=== PATIENT | female | born 1945 | race Two or more races ===

== ENCOUNTER 2025-09-24 10:34 | Outpatient (REF) | payer OTHER, SELFPAY ==
[2025-09-24 14:03] LABS: MANUAL DIFF FLAG NO
[2025-09-24 14:09] LABS: Hematocrit 38.9 % (37.0-47.0); Hemoglobin 12.6 g/dl (12.0-16.0); Imm Gran Abs Auto 0.02 X10*3/uL (0.00-0.03); Imm Gran Pct Auto 0.3 % (0.0-0.4); Lymphocytes Absolute Auto 1.6 X10*3/uL (1.2-4.9); Mean Corpuscular HGB Conc 32.4 g/dl (31.0-35.0); Mean Corpuscular Hemoglobin 31.5 pg (27.0-33.0); Mean Corpuscular Volume 97.3 fL (80.0-98.0); NRBC Abs Auto 0.000 X10*3/uL (0.0-0.012); NRBC Pct Auto 0.0 /100WBC (0.0-0.2); Platelet Count 283 X10*3/uL (160-400); Red Blood Count 4.00 X10*6/uL (4.20-5.50); White Blood Count 5.8 X10*3/uL (4.8-10.8)
[2025-09-24 14:46] LABS: Alanine Aminotransferase 13 U/L (0-31); Albumin Level 4.3 g/dL (3.5-5.0); Alkaline Phosphatase 57 U/L (39-117); Anion Gap 10 (12-20); Aspartate Amino Transferase 26 U/L (5-31); Blood Urea Nitrogen 18 mg/dL (9-16); Calcium 9.6 mg/dL (8.4-10.2); Carbon Dioxide 27 mmol/L (22-29); Chloride 109 mmol/L (96-108); Cholesterol 237 mg/dL (<200); Estimated Glomerular Filt Rate > 60; HDL Cholesterol 60 mg/dL (>40); Magnesium 2.5 mg/dL (1.6-2.6); Potassium 4.5 mmol/L (3.3-5.1); Sodium 141 mmol/L (135-145); Total Protein 7.8 g/dL (6.5-8.0); Triglycerides 108 mg/dL (<150)
[2025-09-24 15:20] LABS: Folate 12.9 ng/mL (> or = 4.0); Vitamin B12 897 pg/mL (200-900)
[2025-09-25 07:43] LABS: Syphilis Screen Nonreactive (Nonreactive)
[2025-09-25 08:21] LABS: HBS Num1 1.09 mIU/mL (0-7.99); HBsAGNum1 0.39 S/CO (0.00-0.99); HIV Num 1 0.09 S/CO (0.00-0.99); Hepatitis B Surface Antigen Negative (Negative); ~HepC Num1 0.11 S/CO (0.00-0.79); ~Hepatitis B Surface Antibody NONREACTIVE (Nonreactive); ~Hepatitis C Antibody Nonreactive (Nonreactive)
[2025-09-29 06:08] LABS: Vitamin D 25-OH, D2 <4 ng/mL; Vitamin D 25-OH, D3 29 ng/mL; Vitamin D 25-OH, Total 29 ng/mL (30-100)
== END 2025-09-24 10:35 | disposition home or self-care (01) ==
LOC: HO.HKASLDS 10:34
PROVIDERS: PCP Student in an Organized Health Care Education/Training Program; Visit Provider Student in an Organized Health Care Education/Training Program
DX: G56.03 Carpal tunnel syndrome, bilateral upper limbs (principal); R32 Unspecified urinary incontinence; R00.0 Tachycardia, unspecified; F41.9 Anxiety disorder, unspecified; K21.9 Gastro-esophageal reflux disease without esophagitis; R73.03 Prediabetes; K29.70 Gastritis, unspecified, without bleeding; E66.3 Overweight; F43.21 Adjustment disorder with depressed mood; L85.3 Xerosis cutis; R26.81 Unsteadiness on feet; Z68.27 Body mass index [BMI] 27.0-27.9, adult
CPT/HCPCS: 36415; 80053; 80061; 82306; 82607; 82746; 83036; 83735; 84443; 85025; 86706; 86780; 86803; 87340; 87389; 96127; 99202

== ENCOUNTER 2025-09-24 10:34 | Outpatient (AMB) | payer OTHER, SELFPAY ==
--- NOTE | 2025-09-24 10:37 | A.OFFPC_ITS ---
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 Television News Video Editor Required: No Television News Video Editor Name: Doctor speaks paraguayan Accompanied by: Self / Same As Patient Allergies No Known Allergies Allergy (Verified 09/24/25 10:43) Medication List - Last Reconciled 09/24/25 by Pan Isidro MD cetirizine (Zyrtec) 5 mg PO DAILY PRN famotidine (Pepcid) 40 mg PO DAILY Tobacco use date assessed: 09/24/25 Fall risk assessment: No Falls in past year Last assessed Fall Risk: 09/24/25 Dental Screening Dental Screen Date: 09/24/25 Did you have a dental visit in the last 12 months?: No Did you have a dental problem in the last 6 months where you did not have access to dental care?: No Was dental information given to patient?: No HPI HPI Comments History of Present Illness Details History of Present Illness The patient is a 79 year old female presenting to establish care and manage multiple chronic conditions, primarily bilateral carpal tunnel syndrome and urinary incontinence. Bilateral Carpal Tunnel Syndrome: The patient has a history of bilateral carpal tunnel syndrome with neuropathy. She underwent a surgical release on her right hand in [place] but developed a fear of the procedure and did not have the left hand operated on. She contin ues to experience symptoms, particularly in the left hand, which causes her to drop objects and limits her ability to perform tasks. She denies ever receiving physical therapy for her hands. Urinary Incontinence: The patient reports suffering from urinary incontinence, requiring her to use absorbent pads at all times. She tries to manage this by limiting fluid intake before leaving her home to avoid accidents. She was evaluated by a urologist in [place] who performed a sonogram and told her that her urethra was fine, but did not offer a solution for the incontinence. Arrhythmia: The patient has a history of arrhythmia and tachycardia for which she saw a gyroscopic engineering technician approximately 6 months ago. An EKG performed at that time showed an unspecified finding, but the gyroscopic engineering technician advised her not to worry about it at present. She does not have the records from this evaluation. Gastrointestinal Issues: An endoscopy performed in [place] 6-7 months ago revealed a hiatal hernia. She experiences both reflux and gastritis, which she manages with Pepcid (famotidine) at night. She also reports constipation, which is managed by eating Raisin Bran cereal for its fiber content. Anxiety: The patient reports experiencing anxiety and has not tolerated medications for it in the past. She requested something non-sedating to help. Imbalance: The patient reports a long-standing history of imbalance, noting that she sometimes walks sideways. Surgical History: - Hysterectomy with oophorectomy at age 36. - Right carpal tunnel release surgery, d ate unspecified. Medications: - Pepcid (famotidine) at night for reflu x and gastritis. Social History: - Functional Status: The patient reports she is able to bathe and dress herself but cannot perform strenuous work due to limitations with her hands. - Sleep: She typically sleeps for about 5 hours per night. - Nutrition: She reports eating Raisin B ran cereal to maintain regular bowel movements. Diagnostic Results: - Mammogram (~6 months ago): The left br east was normal, but a repeat study was recommended for the right breast, which was not completed. - Endoscopy (~6-7 months ago): Showed a hiatal hernia. - Colonoscopy (~6-7 months ago): A findi ng was noted and scraped/removed. - Urology study (date unspecified): A so nogram was performed and was reportedly normal. - EKG (~6 months ago): Showed an unspeci fied abnormality that was deemed not immediately concerning. Past Medical History - Bilateral carpal tunnel syndrome, s/p right carpal tunnel release - Urinary incontinence - History of arrhythmia and tachycardia - Gastroesophageal reflux disease and ga stritis - Hiatal hernia - Anxiety - History of COVID-19 infection - Constipation - Denies history of hypertension or diab etes. Health Maintenance - Mammogram: Last performed approximatel y 6 months ago; requires follow-up on an abnormal finding in the right breast. - Colonoscopy: Last performed in [place] 6-7 months ago. - Pap Smear: Not applicable due to histo ry of total hysterectomy. [facility] Medical History (Updated 09/24/25 @ 13:00 by Pan Isidro MD) Urinary incontinence History of prediabetes High cholesterol Surgical History (Updated 09/24/25 @ 10:47 by Roberth Mahajan CMA) H/O breast surgery Family History (Updated 09/24/25 @ 10:47 by Roberth Mahajan CMA) Son Mental health disorder Social History (Updated 09/24/25 @ 10:48 by Roberth Mahajan CMA) Housing: Apartment Alcohol intake: never Patient Tobacco Use Status: Never used Tobacco e-Cigarette/Vaping Use: Never Used Second Hand Smoke Exposure: No service: No Current occupational status: retired and disabled Current occupational exposures/hazards: No Cognitive needs: No Hearing needs: Yes Vision needs: Yes Questionnaire PHQ-9 Over the last 2 weeks, how often have you been bothered by any of the following problems? 1. Little interest or pleasure in doing things: not at all 2. Feeling down, depressed, or hopeless: several days 3. Trouble falling or staying asleep, or sleeping too much: not at all 4. Feeling tired or having little energy: several days 5. Poor appetite or overeating: not at all 6. Feeling bad about yourself - or that you are a failure or have let yourself or your family down: more than half the days 7. Trouble concentrating on things, such as reading the newspaper or watching television: several days 8. Moving or speaking so slowly that other people could have noticed. Or the opposite - being so fidgety or restless that you have been moving around a lot more than usual: not at all 9. Thoughts that you would be better off or of hurting yourself in some way: not at all Total score: 5 Depression Screening Interpretation: Negative Depression Screening Done: Yes 45233 - PHQ-9 Billing: Yes Source: Developed by Drs. Charles Rivas, Consuelo Piper, Jean Claude Begum and colleagues, with an educational patrick from [employer]. Thrive Questionnaire Date Thrive assessed: 09/24/25 I am a: Patient What is your living situation today?: I have a steady place to live Within the past 12 months, did the food you bought not last and you didn't have the money to get more?: Never true Within the past 12 months, did you worry whether your food would run out before you got money to buy more?: Never true Do you have trouble paying for medicines?: No Do you have trouble getting transportation to medical appointments?: No Do you have trouble paying your heating and electricity bill?: No Do you have trouble taking care of your child, family member or friend?: No Do you have trouble with day-to-day activities such as bathing, preparing meals, shopping, managing finances, etc.?: No Are you currently unemployed and looking for a job?: No Are you interested in more education?: No Please select the resources that you would like help with: None Currently or been in a relationship where the following occur: No concerns reported THRIVE Score: 0 AUDIT C Alcohol Use Questionnaire (AUDIT-C) 1. How often do you have a drink containing alcohol?: Never Total Score: 0 HANDY-7 AMB Questionnaire HANDY-7 Date HANDY - 7 assessed: 09/24/25 Feeling nervous, anxious, or on edge: 2 = More than half the days Not being able to stop or control worryin = Several days Worrying too much about different things: 2 = More than half the days Trouble relaxin = Several days Being so restless that it is hard to sit still: 0 = Not at all Becoming easily annoyed or irritable: 0 = Not at all Feeling afraid as if something awful might happen: 1 = Several days Total HANDY-7 score (0-4 normal; 5-9 mild; 10-14 moderate; 15-21 severe): 7 Source: Developed by Drs. Charles Rivas, Consuelo Piper, Jean Claude Begum and colleagues, with an educational patrick from [employer]. HANDY-7 Assessment Billing HANDY-7 Assessment Tool: HANDY-7 Assessment 64243 Review of Systems Narrative Review of Systems - General: Reports feeling tired. - HEENT: Reports a hoarse voice and globus sensation since a past COVID-19 infection. - Cardiovascular: Reports a history of arrhythmia and tachycardia. - Gastrointestinal: Reports reflux, gastritis, and constipation. She reports being able to swallow. - Genitourinary: Reports urinary incontinence. - Musculoskeletal: Reports bilateral hand symptoms consistent with carpal tunnel, making it difficult to perform certain tasks. - Neurological: Reports imbalance and occasionally walking sideways. Reports dropping things from her left hand. - Integumentary: Reports dry skin and calluses on her feet. - Psychiatric: Reports anxiety. - Endocrine: Denies history of diabetes. 10-point ROS reviewed and negative except as noted in HPI Physical exam (Primary Care) Vital Signs: Last Vital Signs Temp 98 F 09/24/25 10:53 Pulse 70 09/24/25 10:53 Resp 16 09/24/25 10:53 BP 135/62 09/24/25 10:53 Pulse Ox 98 09/24/25 10:53 Oxygen Delivery Method Room Air 09/24/25 10:53 BMI result Body Mass Index 27.5 Tobacco/Smoking Status: Tobacco use Status Tobacco use date assessed 09/24/25 09/24/25 10:56 Patient Tobacco Use Status Never used Tobacco 09/24/25 10:56 e-Cigarette/Vaping Use Never Used 09/24/25 10:56 PHQ-9: PHQ-9 Score PHQ-9: Total score 5 09/24/25 11:11 Depression Screening Interpretation: Negative Thrive Assessment: Date of Thrive Assessment Date Thrive assessed 09/24/25 09/24/25 10:56 Currently or been in a relationship where the following occur: No concerns reported Narrative Physical Exam General: Well-appearing, in no acute distress. Vital signs: Within normal limits. HEENT: Normocephalic, atraumatic. PERRLA, EOMI. Conjunctiva clear, sclera anicteric. Oropharynx clear, mucous membranes moist. TMs intact bilaterally. Neck: Supple, no lymphadenopathy, no thyromegaly, no JVD or carotid bruits. Cardiovascular: RRR, normal S1/S2, no murmurs, rubs, or gallops. Peripheral pulses 2+ and symmetric. No edema. Respiratory: Lungs clear to auscultation bilaterally, no wheezes, rales, or rhonchi. Normal effort. Abdomen: Soft, non-tender, non-distended. Normoactive bowel sounds. No hepatosplenomegaly, no masses. MSK: Full range of motion, no joint swelling or deformity. Normal gait. Reports imbalance and occasional sideways walking. Skin: Warm, dry, intact. No rashes, lesions, or pallor. Both feet have calluses. Neuro: Alert and oriented x3. Cranial nerves II-XII intact. Strength 5/5 throughout. Sensation intact. Reflexes 2+ symmetric. Normal coordination and gait. Reports imbalance. Psych: Appropriate mood and affect. Normal judgment and insight. Reports anxiety, prescribed hydroxyzine 25 mg for anxiety. Results AMB Hemoglobin A1c AMB Hemoglobin A1c 6.1 % Last Edit by Roberth Mahajan CMA on 09/24/25 11:14 Results Reviewed Results Reviewed: Laboratory Last Values Hgb A1c (Clinic) 6.1 % (4.0-6.0) H 09/24/25 11:00 Coding Level of Care Code New Pt Level 4 (68911) Diagnoses Prediabetes R73.03 GERD (gastroesophageal reflux disease) K21.9 Gastritis K29.70 Overweight (BMI 25.0-29.9) E66.3 Adjustment disorder with depressed mood F43.21 Urinary incontinence R32 Xerosis cutis L85.3 Gait instability R26.81 Bilateral carpal tunnel syndrome G56.03 Additional Codes HANDY-7 Assessment Billing - HANDY-7 Assessment Tool: HANDY-7 Assessment 97635 ([id number]) PHQ-9 - 50396 - PHQ-9 Billing: Yes ([id number]) Assessment & Plan Assessment & Plan (1) Prediabetes: Code(s): R73.03 - Prediabetes Category: Medical (2) GERD (gastroesophageal reflux disease): Code(s): K21.9 - Gastro-esophageal reflux disease without esophagitis Category: Medical (3) Gastritis: Code(s): K29.70 - Gastritis, unspecified, without bleeding Category: Medical (4) Overweight (BMI 25.0-29.9): Code(s): E66.3 - Overweight Category: Medical (5) Adjustment disorder with depressed mood: Code(s): F43.21 - Adjustment disorder with depressed mood Category: Medical (6) Urinary incontinence: Code(s): R32 - Unspecified urinary incontinence Category: Medical (7) Xerosis cutis: Code(s): L85.3 - Xerosis cutis Category: Medical (8) Gait instability: Code(s): R26.81 - Unsteadiness on feet Category: Medical (9) Bilateral carpal tunnel syndrome: Code(s): G56.03 - Carpal tunnel syndrome, bilateral upper limbs Category: Medical Plan Consent Patient was informed and verbally consented to the use of an ambient scribe for clinic note documentation during this visit. Plan 1. New Patient Establishment And Health Maintenance - Orders placed for comprehensive labs, including CBC, CMP, thyroid studies, vitamin B12, folate, vitamin D, HbA1c, lipid panel, and screening for hepatitis B, hepatitis C, HIV, and syphilis. - Will request medical records from [facility] regarding her mammogram from 6 months ago and from her previous gyroscopic engineering technician. - Patient instructed to provide all available medical documents to the office staff for scanning into her chart. - Scheduled a follow-up appointment in 2 weeks to review all results and records. 2. Anxiety - Prescribed hydroxyzine 10 mg to be taken as needed for anxiety. - Advised patient she can start with half a tablet (5 mg) to assess for side effects such as drowsiness. 3. Xerosis Cutis - Prescribed a topical cream for dry skin on her feet. 4. Bilateral Carpal Tunnel Syndrome - Will continue to monitor symptoms. refer to orthopeadics for further evaluation and management 5. Urinary Incontinence - Patient's history of a normal urological workup in [place] was noted. will refer to urology for further evaluation and management. Discussion Notes I met this 79-year-old female for the first time today for an new patient visit. We discussed her multiple chronic concerns, including bilateral carpal tunnel syndrome, urinary incontinence, history of arrhythmia, and gastrointestinal issues. I explained that as a first step, we will obtain comprehensive labs to get a baseline of her overall health. I emphasized the importance of obtaining her previous medical records, especially regarding the incomplete mammogram workup and her cardiology evaluation, to ensure continuity of care. For her anxiety, I prescribed hydroxyzine 10 mg, explaining that it is used for allergies but also has anxiolytic properties. I advised her to start with half a tablet to assess for sedation and to use it sparingly. I also prescribed a cream for the dry skin on her feet. We will follow up in two weeks to review all the collected data and formulate a more detailed plan. Patient Instructions - Please go to the lab to have your blood drawn. - Please give your medical papers to the forestry technical officer so we can add them to your file. They will be returned to you. - For anxiety, you can take hydroxyzine 10 mg as needed. You may want to start with half a pill (5 mg) to see how it affects you, as it can cause drowsiness. - A cream has been prescribed for the dry skin on your feet. - Continue to eat high-fiber foods like Raisin Bran to help with constipation. - If you need your medications delivered, please contact your pharmacy to make arrangements. - Please follow up in the office in 2 weeks to discuss your test results. Medical Decision Making The patient is a 79-year-old female presenting for her first visit to establish care. She has multiple chronic, and seemingly unmanaged, complaints including bilateral carpal tunnel syndrome (s/p right-sided surgery), urinary incontinence, a history of arrhythmia, GERD, and anxiety. Given the lack of available medical records and the patient's complex history, the initial approach is focused on information gathering. A comprehensive laboratory panel was ordered to establish a metabolic, hematologic, and endocrine baseline, and to screen for common conditions in this age group. Aggressive attempts to obtain records from her prior gyroscopic engineering technician and from [facility] are critical, particularly for the incomplete mammogram workup, which is a priority for follow-up. Symptomatic treatment was initiated for her anxiety with low-dose hydroxyzine, a conservative choice given her concern for side effects and history of medication intolerance. A topical cream was prescribed for her xerosis. Her complaints of imbalance were noted, but her gait appeared stable on examination; this will be monitored. A short-interval follow-up in two weeks is planned to review all data and formulate a more specific, long-term management plan. Total Time Statement 30 min Total time spent caring for the patient today includes pre-visit chart review, documentation, review of laboratory and diagnostic imaging results, medication reconciliation, medically necessary evaluation, counseling on diagnoses, care coordination, ordering appropriate tests and medications, review of tests performed by other providers, reporting test results to the patient, and communication with other healthcare providers. Orders: Orders Syphilis Screen Today Z13.9 - Encounter for screening, unspecified Comprehensive Met. Panel Today Z13.9 - Encounter for screening, unspecified Hepatitis C Antibody Today Z13.9 - Encounter for screening, unspecified Hemoglobin A1c Today Z13.9 - Encounter for screening, unspecified Vitamin D 25-OH (D2 and D3) Today Z13.9 - Encounter for screening, unspecified AMB Hemoglobin A1c Today Z13.9 - Encounter for screening, unspecified OT Evaluation and Treatment Today G56.00 - Carpal tunnel syndrome, unspecified upper limb Complete Blood Count Auto Diff Today Z13.9 - Encounter for screening, unspecified Hepatitis B Surface Antigen Today Z13.9 - Encounter for screening, unspecified TSH reflex Free T4 Today Z13.9 - Encounter for screening, unspecified HIV Ab/Ag Today Z13.9 - Encounter for screening, unspecified UA CC w/rflx Micro + Cult Today Z13.9 - Encounter for screening, unspecified Lipid Panel Today Z13.9 - Encounter for screening, unspecified Vitamin B12 and Folate Today Z13.9 - Encounter for screening, unspecified Magnesium Today Z13.9 - Encounter for screening, unspecified Hepatitis B Surface Antibody Today Z13.9 - Encounter for screening, unspecified Referrals Orthopedics Referral G56.00 - Carpal tunnel syndrome, unspecified upper limb Urology Referral R32 - Unspecified urinary incontinence Medications: New hydroxyzine HCl 10 mg PO BEDTIME 30 tabs 0RF ammonium lactate 12% 1 appl topical DAILY 400 grams 0RF
[2025-09-24 10:53] VITALS: BP 135/62; PULSE 70; RESP 16; TEMP 36.6; O2SAT 98; BMI 27.5
--- OUTSIDE RECORDS SUMMARY | 2025-09-24 12:02 | XMS_ITS | Encounter Summary ---
Author Organization [facility] Address [address] [place] [address] Care Team Providers Care Mold Yarn Supervisor Name Role Phone Physician, No Pcp Primary Care Provider Unavaila ble Encounter Details Date Type Department Care Team (Late st Contact Info) Description 02/06/2025 Health Home Core Service [facility] [address] [place] [address] Monica Berg, RN Social History Tobacco Use Types Packs/Day Years Used Date Smoking Tobacco: Never Smokeless Tobacco: Never Alcohol Use Standard Drinks/Week Comments Never 0 (1 standard drink = 0.6 oz pur e alcohol) Comments Unknown Sex and Gender Information Value Date Recorded Sex Assigned at Not on file Legal Sex Female 12:49 AM EST Gender Identity Not on file Sexual Orientation Not on file documented as of this encounter Plan of Treatment Not on file documented as of this encounter Visit Diagnoses Not on filedocumented in this encounter Additional Health Concerns Infection Onset Date Last Indicated Resolved Time Respiratory Rule-Out 08/18/2025 08/18/2025 025 3:47 PM EST COVID-19 Rule-Out 08/18/2025 08/18/2025 08/18/2025 3:47 PM EST Human Metapneumovirus 08/18/2025 08/18/2025 Assessment Noted Time PHQ-9 Depression Total Score: 14 025 11:53 AM EDT documented as of this encounter Care Teams Mold Yarn Supervisor Relationship Specialty Start Date End Date Physician, No Pcp PCP - General 08/18/25 documented as of this encounter
--- OUTSIDE RECORDS SUMMARY | 2025-09-24 12:02 | XMS_ITS | Clinical Summary ---
Author Organization [facility] Address [address] [place] [id number] Phone Care Team Providers Care Machine Package Sealer Name Role Phone Physician, No Pcp Primary Care Provider Unavaila ble Allergies Active Allergy Reactions Criticality Noted Date Comments Duloxetine Diarrhea,Palpitations,Dizziness 11/26 House Dust Mite Itching 12/07/2024 Gabapentin 08/18/2025 Medications hyoscyamine (Levsin/SL) 0.125 mg SL tabletIndications: Gastroesophageal reflux disease without esophagitis Place 1 tablet (0.125 mg total) under the tongue every 4 (four) hours if needed for cramping for up to 10 days. 30 tablet 11/28/19 25 Active cetirizine (ZyrTEC) 10 mg tabletIndications: Allergic rhinitis, unspecified seasonality, unspecified trigger Take 1 tablet (10 mg total) by mouth 1 (one) time each day. 28 each 11/28/19 026 Active Additional Information Patient taking differently: 5 mgoral Daily,Indications: urticaria, Reported on 12/07/2024 triamcinolone (KENALOG) 0.1 % creamIndications:I tching Apply topically 2 (two) times a day if needed for irritation. Apply to affected area 1-2 times daily as needed. Avoid face and groin. 30 g 2 11/28/19 25 Active magnesium citrate 125 mg capsuleIndications :Gastroesophageal reflux disease without esophagitis Take 2 tablets by mouth 1 (one) time each day if needed (constipation). 28 capsule 2 11/28/19 25 Active ibuprofen (ADVIL,MOTRIN) 200 mg tabletIndications: Carpal tunnel syndrome, unspecified laterality Take 2 tablets (400 mg total) by mouth 2 (two) times a day if needed for moderate pain or mild pain. 11/28/19 Active Additional Information Patient not taking.Reported on 12/07/2024 diclofenac sodium 1 % kitIndications:Car pal tunnel syndrome, unspecified laterality Apply 1 EA topically 3 (three) times a day if needed (joint pain). 1 each 2 11/28/19 Active cholecalciferol (Vitamin D3) 25 mcg (1,000 unit) capsuleIndications :Vitamin D deficiency Take 1 capsule (1,000 Units total) by mouth 1 (one) time each day. 28 capsule 12/16/19 25 Active alpha lipoic acid 600 mg tabletIndications: Examination Take 1 tablet by mouth 1 (one) time each day. 28 tablet 01/03/20 Active famotidine (Pepcid) 40 mg tabletIndications: Gastroesophageal reflux disease without esophagitis Take 1 tablet (40 mg total) by mouth 1 (one) time each day. 30 each 01/03/20 25 Active fluticasone propionate (FLONASE) 50 mcg/actuation nasal sprayIndications:C OVID-19 Administer 2 sprays into each nostril 1 (one) time each day. Shake gently. Before first use, prime pump. After use, clean tip and replace cap. 16 g 01/05/20 25 Active pregabalin (Lyrica) 25 mg capsuleIndications :Peripheral polyneuropathy Take 1 capsule (25 mg total) by mouth at bedtime. Max Daily Amount: 25 mg 30 capsule 5 03/22/20 25 Active Active Problems Problem Noted Date Diagnosed Date History of urethral stricture 01/20/2025 Assessment & Plan (01/20/2025 4:26 PM EDT): Had a dilation in [place]. PVR has no evidence of urinart retention or incomplete bladder emptying. Referring to urologist for evaluation considering symptoms. Urinary frequency 01/20/2025 Assessment & Plan (01/20/2025 4:21 PM EDT): Post-void trail - 1 ml. PAR. Also urine collected for urinalysis and sent for culture. Symptoms may be related to over active bladder, but PAR not interested in starting on any medication. Refer to urologist to discuss other treatment options. Urge urinary incontinence 01/20/2025 Assessment & Plan (01/20/2025 4:27 PM EDT): PAR encouraged to preformed pelvic floor exercise HEP as prescribed, at least twice a day. PAR is not interested in medication at this time. Educated that program takes time, some times months to notice improvement. Referring to urologist to evaluate for bladder prolapse and other etiologies. Other treatment options to be reviewed with PAR. COVID-19 01/04/2025 Assessment & Plan (01/04/2025 3:02 PM EDT): Positive for COVID-19. Discussed starting on antiviral; will defer for now. Treat symptoms. Increase fluid intake. LBBB (left bundle branch block) 01/04/2025 Assessment & Plan (01/04/2025 3:04 PM EDT): ECG obtained. PAR reports palpitations. Refer to opticianry teacher for possible Echocardiogram and further work up. Family history of breast cancer 12/15/2024 Assessment & Plan (12/15/2024 4:33 PM EDT): Sibling from breast cancer at a late age. Last mammogram approx. 2 years ago. Will order repeat screening mammogram. Hypercholesterolemia 12/07/2024 Assessment & Plan (12/15/2024 4:07 PM EDT): Chronic condition; check lipid panel. Prediabetes Assessment & Plan (12/15/2024 4:08 PM EDT): Chronic condition; check Hgba1c. Continue daily activity. Peripheral neuropathy Assessment & Plan (01/04/2025 3:07 PM EDT): Continue Lyrica but reduce dose to 50 mg nightly. Reevaluate. Assessment & Plan (12/13/2024 11:29 AM EDT): Hesitant about trying gabapentin as she states not tolerating in the past. Start on Lyrica 75 mg twice a day and reevaluate. Osteoporosis Assessment & Plan (12/15/2024 4:05 PM EDT): Chronic condition; does not recall last time she had a DEXA scan. Continue to maintain weight bearing exercises. Check Vitamin D level. Also order DEXA scan. Osteoarthritis Overview (12/07/2024): bilatetal hands Assessment & Plan (12/15/2024 4:06 PM EDT): Chronic condition; continue supportive measures. Apply diclofenac gel as needed. Multinodular goiter (nontoxic) Assessment & Plan (12/15/2024 4:08 PM EDT): Chronic condition; will order TSH and thyroid u/s. 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) Assessment & Plan (12/15/2024 4:26 PM EDT): Chronic condition; discussed sleep hygiene with PAR. Itching Assessment & Plan (12/13/2024 11:30 AM EDT): Chronic condition. Continue to use oral antihistamine and steroid cream as needed. Monitor. Hard of hearing Assessment & Plan (12/13/2024 11:30 AM EDT): Chronic condition; has hearing aides that keep falling off. Do not fit well. Will need to be evaluate by regional clinical research associate. GERD (gastroesophageal reflux disease) Assessment & Plan (12/13/2024 11:35 AM EDT): Chronic condition; labile. Symptomatic. Takes H2 blockers only when symptoms are severe, but experience GERD symptoms daily. Encouraged PAR to take medication daily. Educated on following on avoiding trigger foods. Generalized anxiety disorder with panic attacks Assessment & Plan (12/15/2024 4:28 PM EDT): PAR sensitive to many medication. Starting on Lyrica first. Then will address anxiety. Did not tolerate Duloxetine. Fibromyalgia Assessment & Plan (12/13/2024 11:31 AM EDT): Chronic condition; continue supportive measures such as warm showers. Starting Lyrica twice daily. Recurrent major depressive disorder Assessment & Plan (12/15/2024 4:29 PM EDT): PHQ-9 score of 14. Will have PAR follow up to address anxiety and depression. Wanted to start on treatment for neuropathy.fibromyalgia first. Degenerative joint disease of cervical spine Assessment & Plan (12/15/2024 4:07 PM EDT): Chronic condition. Encourage stretching exerices. Using diclofenac gel which helps pain. DDD (degenerative disc disease), lumbar Assessment & Plan (12/15/2024 4:10 PM EDT): Chronic condition; encourage stretching exercises. Can use APAP as needed for pain. Carpal tunnel syndrome, bilateral Assessment & Plan (12/13/2024 11:32 AM EDT): History of right carpal tunnel surgery. Still with symptoms bilaterally. Treat underlying neuropathy. Reevaluate. Blindness of left eye Assessment & Plan (12/15/2024 4:30 PM EDT): Need to obtain ophthalmology records. Etiology is unclear. Non-seasonal allergic rhinitis Assessment & Plan (12/13/2024 11:33 AM EDT): Chronic condition; labile. Only uses antihistamine on occasional not daily. Has chronic itching. Encouraged to taking medication daily. Encounters Date Type Department Care Team Description 08/18/2025 2:26 PM EST - 08/18/2025 5:46 PM EST Emergency [facility] Emergency [address] [place] [address] Dom Dumont MD Viral URI (Primary Dx); Infection due to human metapneumovirus (hMPV) Discharge Disposition: Home or Self Care from Last 3 Months Immunizations Immunization Administration Dates Next Due Pneumococcal conjugate 20 va lent (Prevnar 20, PCV 20) 2mo and older 03/23/2025 03/23/2035 Surgical History Surgery Date Site/Laterality Comments HYSTERECTOMY N/A CARPAL TUNNEL RELEASE Right EYE SURGERY BREAST LUMPECTOMY Left HEMORRHOID SURGERY Medical History Medical History Date Comments Carpal tunnel syndrome, bilateral Generalized anxiety disorder with panic attacks Depression 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) Grief Osteoarthritis bilatetal hands Hard of hearing GERD (gastroesophageal reflux disease) Peripheral neuropathy Back pain Blindness of left eye Allergic rhinitis Anterolisthesis of cervical spine Degenerative joint disease o f cervical spine Osteoporosis Prediabetes Multinodular goiter (nontoxic) DDD (degenerative disc disease), lumbar Calcific Achilles tendinitis Rig ht foot Tubular adenoma of colon 04/02/2017 Colonos copy preformed at [facility] Duodenitis determined by biopsy 04/02/2017 EGD done at [facility] Esophagitis determined by endoscopy 04/02/2017 Fibromyalgia Itching Family History Medical History Relation Name Comments Breast cancer Sister 1 Brain cancer Sister 2 Lymphoma Son Relation Name Status Comments Sister 1 Sister 2 Son Social History Tobacco Use Types Packs/Day Years Used Date Smoking Tobacco: Never Smokeless Tobacco: Never Tobacco Cessation:Counseling Given: Not Answered Alcohol Use Standard Drinks/Week Comments Never 0 (1 standard drink = 0.6 oz pur e alcohol) Comments No Sex and Gender Information Value Date Recorded Sex Assigned at Not on file Legal Sex Female 12:49 AM EST Gender Identity Not on file Sexual Orientation Not on file Obstetrics History Para Term AB IAB SAB Ectopic Multiple Livin g Live Births 4 4 2 4 Date Outcome GA Total Labor Labor/2nd/3rd Weight Sex Type Anes PTL Tari A1 A5 Name Clin Para Para Para Para Last Filed Vital Signs Vital Sign Reading Time Taken Comments Blood Pressure 110/62 08/18/2025 5:07 PM EST Pulse 65 08/18/2025 5:07 PM EST Temperature 36.9 C (98.4 F) 08/18/2025 5:07 PM EST Respiratory Rate 18 08/18/2025 5:07 PM EST Oxygen Saturation 99% 08/18/2025 5:07 PM EST Inhaled Oxygen Concentration - - Weight 65.8 kg (145 lb) 08/18/2025 2:11 PM EST Height 152.4 cm (5') 08/18/2025 2:11 PM EST Body Mass Index 28.32 08/18/2025 2:11 PM EST Plan of Treatment Health Maintenance Due Date Last Done Comments Zoster Vaccines (2 of 3) 11/21/2014 09/26/2014 DTaP,Tdap,and Td Vaccines (2 - Td or Tdap) 04/28/2020 04/28/2010 RSV Immunization Adult Patients (1 - 1-dose 75+ series) 2020 Falls Risk Assessment 11/29/2024 Hepatitis C Screening 11/29/2024 Medicare Annual Wellness Visit 11/29/2024 Social Influencers of Health Screening 11/29/2024 COVID-19 Vaccine (1 - season) 2025 Influenza Vaccine (#1) 2025 9, 11/06/2016, 08/15/2015, Additional history exists Cholesterol Screening (Lipid Panel) 01/04/2030 01/04/2025, 12/07/2024 Osteoporosis Screening (Bone Density Screening) 02/28/2035 02/28/2025 Depression Screening Completed 12/07/2024 Pneumococcal Vaccine: 50+ Years Completed 03/23/2025, 02/22/2016, 10/10/2007 HIB Vaccines Aged Out No longer eligi ble based on patient's age to complete this topic HPV Vaccines Aged Out No longer eligi ble based on patient's age to complete this topic Hepatitis A Vaccines Aged Out No long er eligible based on patient's age to complete this topic Hepatitis B Vaccines Aged Out No long er eligible based on patient's age to complete this topic IPV Vaccines Aged Out No longer eligi ble based on patient's age to complete this topic MMR Vaccines Aged Out No longer eligi ble based on patient's age to complete this topic Meningococcal ACWY Vaccine Aged Out N o longer eligible based on patient's age to complete this topic Meningococcal B Vaccine Aged Out No l onger eligible based on patient's age to complete this topic RSV Immunization Patients Under 20 months Aged Out No longer eligible based on patient's age to complete this topic Varicella Vaccines Aged Out No longer eligible based on patient's age to complete this topic Procedures Procedure Name Priority Date/Time Associated Diagnosis Comments ECG ANNOTATED 08/20/2025 XR CHEST 2 VIEWS STAT 08/18/2025 3:17 PM EST CBC WITH AUTO DIFFERENTIAL STAT 08/18/2025 2:47 PM EST MAGNESIUM STAT 08/18/2025 2:47 PM EST COMPREHENSIVE METABOLIC PANEL STAT 08/18/2025 2:47 PM EST CBC AND DIFFERENTIAL STAT 08/18/2025 2:47 PM EST RESPIRATORY VIRUS PANEL MOLECULAR STUDY STAT 08/18/2025 2:47 PM EST ECG 12-LEAD STAT 08/18/2025 2:24 PM EST BD BONE DENSITY DXA AXIAL SKELETON Routine 02/28/2025 1:12 PM EDT Age-related osteoporosis without current pathological fracture LIPID PANEL WITH REFLEX TO DIRECT LDL Routine 01/04/2025 9:53 AM EDT Hypercholesterolemia Examination from Last 3 Months or Most Recently Relevant to Health Maintenance Results * ECG-Annotated (08/20/2025) us Provider Onbase MD ECG ORDERABLES Final Result * XR Chest 2 Views (08/18/2025 3:17 PM EST) Anatomical Region Laterality Modality Body Radiographic Shruti ging 08/18/2025 3:18 PM EST Impressions 08/18/2025 3:21 PM EST No acute findings. -------- FINAL REPORT -------- Dictated By: Venu Casey Dictated Date: 08/18/2025 15:18 ET Assigned Physician: Venu Casey Reviewed and Electronically Signed By: Venu Casey Signed Date: 08/18/2025 15:21 ET Workstation ID: [id number] Transcribed By: Self Edit Transcribed Date: 08/18/2025 15:18 ET Narrative 08/18/2025 3:21 PM EST PROCEDURE: PA and lateral radiographs of the chest. HISTORY: Cough, sputum production. COMPARISON: 06/03/2017. FINDINGS: Mild subsegmental atelectasis at the left base. Lungs otherwise clear. Atherosclerotic calcifications of the aorta. Pleural spaces and pulmonary vasculature are normal. Degenerative changes of the spine and shoulders. Generalized osteopenia. Procedure Note Venu Casey MD - 08/18/2025 PROCEDURE: PA and lateral radiographs of the chest. HISTORY: Cough, sputum production. COMPARISON: 06/03/2017. FINDINGS: Mild subsegmental atelectasis at the left base. Lungs otherwise clear.Atherosclerotic calcifications of the aorta. Pleural spaces and pulmonaryvasculature are normal. Degenerative changes of the spine and shoulders.Generalized osteopenia. IMPRESSION: No acute findings. -------- FINAL REPORT -------- Dictated By: Venu Casey Dictated Date: 08/18/2025 15:18 ET Assigned Physician: Venu Casey Reviewed and Electronically Signed By: Venu Casey Signed Date: 08/18/2025 15:21 ET Workstation ID: [id number] Transcribed By: Self Edit Transcribed Date: 08/18/2025 15:18 ET Dom Dumont MD IMG XR PROCEDURES Final Result * (ABNORMAL) Respiratory virus panel molecular study (08/18/2025 2:47 PM EST) Adenovirus Detection by PCR Not Detected Not Detected LAB MICROBIOLOGY METHOD 08/18/2025 3:[address] [facility] Influenza A PCR Not Detected Not Detected LAB MICROBIOLOGY METHOD 08/18/2025 3:47 PM EST [facility] Influenza B PCR Not Detected Not Detected LAB MICROBIOLOGY METHOD 08/18/2025 3:47 PM EST [facility] Coronavirus 229E Not Detected Not Detected LAB MICROBIOLOGY METHOD 08/18/2025 3:[address] [facility] Coronavirus HKU1 Not Detected Not Detected LAB MICROBIOLOGY METHOD 08/18/2025 3:47 PM EST [facility] Coronavirus OC43 Not Detected Not Detected LAB MICROBIOLOGY METHOD 08/18/2025 3:47 PM EST [facility] Coronavirus NL63 Not Detected Not Detected LAB MICROBIOLOGY METHOD 08/18/2025 3:[address] [facility] Parainfluenza Virus 1 Not Detected Not Detected LAB MICROBIOLOGY METHOD 08/18/2025 3:[address] [facility] Parainfluenza Virus 2 Not Detected Not Detected LAB MICROBIOLOGY METHOD 08/18/2025 3:[address] [facility] Parainfluenza Virus 3 Not Detected Not Detected LAB MICROBIOLOGY METHOD 08/18/2025 3:[address] [facility] Parainfluenza Virus 4 Not Detected Not Detected LAB MICROBIOLOGY METHOD 08/18/2025 3:[address] [facility] RSV PCR Not Detected Not Detected LAB MICROBIOLOGY METHOD 08/18/2025 3:[address] [facility] Human Metapneumovirus A and B Detected(A ) Not Detected LAB MICROBIOLOGY METHOD 08/18/2025 3:[address] [facility] Rhinovirus/Entero virus Not Detected Not Detected LAB MICROBIOLOGY METHOD 08/18/2025 3:[address] [facility] Bordetella pertussis Not Detected Not Detected LAB MICROBIOLOGY METHOD 08/18/2025 3:[address] [facility] Bordetella parapertussis Not Detected Not Detected LAB MICROBIOLOGY METHOD 08/18/2025 3:[address] [facility] Mycoplasma pneumo by PCR Not Detected Not Detected LAB MICROBIOLOGY METHOD 08/18/2025 3:[address] [facility] Chlamydia pneumoniae Not Detected Not Detected LAB MICROBIOLOGY METHOD 08/18/2025 3:[address] [facility] SARS COV-2 Not Detected Not Detected LAB MICROBIOLOGY METHOD 08/18/2025 3:[address] [facility] Swab Both anterior nares / Unknown Non-blood Collection / Unknown 08/18/2025 2:47 PM EST 08/18/2025 2:56 PM EST [facility] - 08/18/2025 3:47 PM EST Testing was performed using the [employer] Respiratory Pathogen PCR Assay. All results must be correlated with the clinical findings. Results should not be used as the sole basis for diagnosis. False Negative results may occur from the presence of sequence variants in the region targeted by the assay or the presence of inhibitors. Results may be affected by concurrent antiviral/antimicrobial therapy or levels of organisms that are below the limit of detection. Dom Dumont MD LAB MICROBIOLOGY - GENERAL ORDER TRINITY Final Result [facility] [address] [place] [address], * CBC auto differential (08/18/2025 2:47 PM EST) WBC 4.8 4.8 - 10.8 K/mcL LAB HEMETOLOGY METHOD 08/18/2025 3:[address] [facility] RBC 4.10 3.80 - 4.80 M/mcL LAB HEMETOLOGY METHOD 08/18/2025 3:[address] [facility] Hemoglobin 12.8 11.5 - 16.0 g/dL LAB HEMETOLOGY METHOD 08/18/2025 3:[address] [facility] Hematocrit 38.8 35.0 - 47.0 % LAB HEMETOLOGY METHOD 08/18/2025 3:[address] [facility] MCV 95.3 79.0 - 98.0 FL LAB HEMETOLOGY METHOD 08/18/2025 3:[address] [facility] MCH 31.4 27.0 - 32.0 pcg LAB HEMETOLOGY METHOD 08/18/2025 3:[address] [facility] MCHC 33.0 32.0 - 37.0 g/dL LAB HEMETOLOGY METHOD 08/18/2025 3:[address] [facility] RDW 12.5 11.0 - 15.0 % LAB HEMETOLOGY METHOD 08/18/2025 3:[address] [facility] Platelets 197 130 - 400 K/mcL LAB HEMETOLOGY METHOD 08/18/2025 3:[address] [facility] MPV 11.0 7.0 - 11.0 FL LAB HEMETOLOGY METHOD 08/18/2025 3:[address] [facility] NRBC 0.0 <1.0 % LAB HEMETOLOGY METHOD 08/18/2025 3:[address] [facility] NRBC Absolute 0.00 <0.10 K/mcL LAB HEMETOLOGY METHOD 08/18/2025 3:[address] [facility] Neutrophils Relative 47.8 % LAB HEMETOLOGY METHOD 08/18/2025 3:[address] [facility] Lymphocytes Relative 35.8 % LAB HEMETOLOGY METHOD 08/18/2025 3:[address] [facility] Monocytes Relative 10.1 % LAB HEMETOLOGY METHOD 08/18/2025 3:[address] [facility] Eosinophils Relative 5.5 % LAB HEMETOLOGY METHOD 08/18/2025 3:[address] [facility] Basophils Relative 0.4 % LAB HEMETOLOGY METHOD 08/18/2025 3:[address] [facility] Immature Granulocytes Relative 0.4 % LAB HEMETOLOGY METHOD 08/18/2025 3:[address] [facility] Neutrophils Absolute 2.28 1.50 - 7.00 K/mcL LAB HEMETOLOGY METHOD 08/18/2025 3:[address] [facility] Lymphocytes Absolute 1.71 1.00 - 5.00 K/mcL LAB HEMETOLOGY METHOD 08/18/2025 3:[address] [facility] Monocytes Absolute 0.48 0.20 - 1.00 K/mcL LAB HEMETOLOGY METHOD 08/18/2025 3:02 PM EST [facility] Eosinophils Absolute 0.26 0.00 - 0.50 K/[facility] LAB HEMETOLOGY METHOD 08/18/2025 3:02 PM EST [facility] Basophils Absolute 0.02 0.00 - 0.20 K/[facility] LAB HEMETOLOGY METHOD 08/18/2025 3:02 PM EST [facility] Immature Granulocytes Absolute 0.02 0.00 - 0.03 K/[facility] LAB HEMETOLOGY METHOD 08/18/2025 3:02 PM EST [facility] Blood Venous blood specimen / Unknown Venipuncture / Unknown 08/18/2025 2:47 PM EST 08/18/2025 2:54 PM EST Dom Dumont MD LAB BLOOD ORDERABLES Final Resul t Performing Organization Address City/[facility]/ZIP Co de Phone Number [facility] [address] [place] [address], [place] [phone] * Magnesium (08/18/2025 2:47 PM EST) Magnesium 1.9 1.9 - 2.6 mg/dL 08/18/2025 3:33 PM EST [facility] Blood Venous blood specimen / Unknown Venipuncture / Unknown 08/18/2025 2:47 PM EST 08/18/2025 2:54 PM EST Dom Dumont MD LAB BLOOD ORDERABLES Final Resul t Performing Organization Address City/[facility]/ZIP Co de Phone Number [facility] [address] [place] [address], [place] [phone] * (ABNORMAL) Comprehensive metabolic panel (08/18/2025 2:47 PM EST) Sodium 140 133 - 145 mmol/L 08/18/2025 3:33 PM EST [facility] Potassium 3.8 3.5 - 5.5 mmol/L 08/18/2025 3:[address] [facility] Chloride 104 96 - 110 mmol/L 08/18/2025 3:[address] [facility] CO2 26 21 - 32 mmol/L 08/18/2025 3:[address] [facility] Anion Gap 10 3 - 11 08/18/2025 3:[address] [facility] Glucose 127(H) 70 - 100 mg/dL 08/18/2025 3:[address] [facility] BUN 15 5 - 25 mg/dL 08/18/2025 3:[address] [facility] Creatinine 0.88 0.50 - 1.10 mg/dL 08/18/2025 3:[address] [facility] eGFR 67 >=60 mL/min/1. 73m2 08/18/2025 3:[address] [facility] Comment:Calculation based on the Chronic Kidney Disease Epidemiology Collaboration (CKD-EPI) equation refit without adjustment for race. BUN/Creatinine Ratio 17.0 08/18/2025 3:[address] [facility] Calcium 9.0 8.5 - 10.5 mg/dL 08/18/2025 3:[address] [facility] AST (SGOT) 28 10 - 42 unit/L 08/18/2025 3:[address] [facility] ALT (SGPT) 12 10 - 60 unit/L 08/18/2025 3:[address] [facility] Alkaline Phosphatase 58 42 - 121 unit/L 08/18/2025 3:[address] [facility] Total Protein 6.9 6.0 - 8.0 g/dL 08/18/2025 3:[address] [facility] Albumin 4.0 3.2 - 5.0 g/dL 08/18/2025 3:33 PM EST [facility] Total Bilirubin 0.3 0.0 - 1.4 mg/dL 08/18/2025 3:33 PM EST [facility] Blood Venous blood specimen / Unknown Venipuncture / Unknown 08/18/2025 2:47 PM EST 08/18/2025 2:54 PM EST Dom Dumont MD LAB BLOOD ORDERABLES Final Resul t Performing Organization Address [facility] Co de Phone Number [facility] [address] [place] [address], [place] [phone] * ECG 12 lead (08/18/2025 2:24 PM EST) Ventricular Rate ECG 81 BPM GEMUSE Atrial Rate 81 BPM GEMUSE P-R Interval 156 ms GEMUSE QRS Duration 132 ms GEMUSE Q-T Interval 428 ms GEMUSE QTc 497 ms GEMUSE P Wave [place] 57 degrees GEMUSE R [place] 0 degrees GEMUSE T [place] 123 degrees GEMUSE ECG Interpretation Normal sinus rhythm Left bundle branch block Abnormal ECG When compared with ECG of 12-JUN-2001 14:11, Left bundle branch block is now Present Confirmed by ELLEN HAWKINS ([id number]) on 08/19/2025 5:40:10 PM GEMUSE 08/18/2025 2:24 PM EST 08/19/2025 5:40 PM EST Stephanie Ruiz USER SUPPORT SPECIALIST ECG ORDERABLES Final Res ult Performing Organization Address City/[facility]/ZIP Co de Phone Number GEMUSE * BD Bone Density DXA Axial Skeleton (02/28/2025 1:12 PM EDT) Anatomical Region Laterality Modality Wrist, Hip, L-spine Bone Densito metry 02/28/2025 1:49 PM EDT Impressions 02/28/2025 1:50 PM EDT Osteoporosis. Telealber [place] ([id number]) -------- FINAL REPORT -------- Dictated By: Hyacinth Hui Dictated Date: 02/28/2025 13:49 ET Assigned Physician: Hyacinth Hui Reviewed and Electronically Signed By: Hyacinth Hui Signed Date: 02/28/2025 13:50 ET Workstation ID: [id number] Transcribed By: Self Edit Transcribed Date: 02/28/2025 13:49 ET Narrative 02/28/2025 1:50 PM EDT History: Low estrogen state due to menopause. Comparison: No comparison study at this institution. Findings: Bone densitometry is performed utilizing dual energy x-ray absorptiometry (DXA) in the [employer] unit. The lumbar spine and proximal femora are evaluated in the AP projection. The FRAX questionaire was completed. The results indicate osteoporosis, with a left femoral neck T-score of -3.0. The Z score is -1.0, indicating low bone mineral density for age. The detailed DEXA report will be mailed to the referring physician's office. [employer]em[employer] FRAX: 10-year Probability of Fracture: Major Osteoporotic 13.9 percent Hip 5.3 percent. Procedure Note Hyacinth Hui MD - 02/28/2025 History: Low estrogen state due to menopause. Comparison: No comparison study at this institution. Findings: Bone densitometry is performed utilizing dual energy x-ray absorptiometry(DXA) in the [employer] unit. The lumbar spine and proximal femora areevaluated in the AP projection. The FRAX questionaire was completed. The results indicate osteoporosis, with a left femoral neck T-score of-3.0. The Z score is -1.0, indicating low bone mineral density for age.The detailed DEXA report will be mailed to the referring physician'soffice. Dual[employer]em[employer] FRAX: 10-year Probability of Fracture: Major Osteoporotic 13.9percent Hip 5.3 percent. IMPRESSION: Osteoporosis. Telealber HARGROVE ([id number]) -------- FINAL REPORT -------- Dictated By: Hyacinth Hui Dictated Date: 02/28/2025 13:49 ET Assigned Physician: Hyacinth Hui Reviewed and Electronically Signed By: Hyacinth Hui Signed Date: 02/28/2025 13:50 ET Workstation ID: [id number] Transcribed By: Self Edit Transcribed Date: 02/28/2025 13:49 ET Tatiana Mahajan USER SUPPORT SPECIALIST IMG DXA PROCEDURES Final Resu lt * (ABNORMAL) Lipid panel with reflex to direct LDL (01/04/2025 9:53 AM EDT) Cholesterol 209(H) 0 - 200 mg/dL LAB CHEMISTRY METHOD 01/04/2025 7:21 PM EDT [facility] Triglycerides 101 0 - 150 mg/dL LAB CHEMISTRY METHOD 01/04/2025 7:21 PM EDT [facility] HDL 74 >=40 mg/dL LAB CHE[facility]STRY METHOD [facility] LDL Calculated 115(H) 0 - 100 mg/dL LAB CHEMISTRY METHOD 01/04/2025 7:21 PM EDT [facility] VLDL Cholesterol Keagan 20.2 mg/dL LAB CHEMISTRY METHOD 01/04/2025 7:21 PM T [facility] Non HDL Chol. (LDL+VLDL) 135 <145 mg/dL LAB CHEMISTRY METHOD 01/04/2025 7:21 PM T [facility] Chol/HDL Ratio 2.8 0.0 - 4.4 LAB CHEMISTRY METHOD 01/04/2025 7:21 PM T [facility] Blood Venous blood specimen / Unknown Venipuncture / Unknown 01/04/2025 9:53 AM EDT 01/04/2025 9:53 AM EDT us Tatiana Mahajan NP LAB BLOOD ORDERABLES Final Re sult [facility] [address] [place] [address], [place] [phone] from Last 3 Months or Most Recently Relevant to Health Maintenance Additional Health Concerns Infection Onset Date Last Indicated Human Metapneumovirus 08/18/2025 08/18/2025 Insurance [place] MED[place] AD[place] GENERIC Member Subscriber Plan / Payer ( fective 2025-Present) Name:Margarita Boudreaux Relation to Subscriber:Self Name:Margarita Boudreaux Payer ID:[id number] Group ID:Not on file Type:Not on file Address: [facility] , [address] [facility] [address] [place] [address] * Guarantor: [employer] Account Type Relation to Patient Date of Phone Billing Address [employer] [id number] [place] [address] Advance Directives Documents on File Type Date Recorded 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
== END 2025-09-24 11:43 | disposition home or self-care (01) ==
PROVIDERS: PCP Student in an Organized Health Care Education/Training Program; Visit Provider Student in an Organized Health Care Education/Training Program
DX: R73.03 Prediabetes (principal); K21.9 Gastro-esophageal reflux disease without esophagitis; K29.70 Gastritis, unspecified, without bleeding; E66.3 Overweight; F43.21 Adjustment disorder with depressed mood; R32 Unspecified urinary incontinence; L85.3 Xerosis cutis; R26.81 Unsteadiness on feet; G56.03 Carpal tunnel syndrome, bilateral upper limbs; Z13.9 Encounter for screening, unspecified